=== PATIENT | female | born 1975 | race Caucasian/White ===

== ENCOUNTER 2020-08-15 14:57 | Emergency (ER) | payer SELFPAY ==
[~2020-08-15] VITALS: Ht 165.1 cm; Wt 67.2 kg
[2020-08-15 16:08] LABS: BASO # 0.1 x10^3/uL (0.0-0.2); BASO % 1 % (0-3); EOS # 0.2 x10^3/uL (0.0-0.7); EOS % 2 % (0-3); HEMATOCRIT 39.8 % (36.0-47.0); HEMOGLOBIN 14.1 g/dL (12.0-15.5); LYMPH # 3.2 x10^3/uL (1.0-4.8); LYMPH % 30 % (24-48); MEAN CORPUSCULAR HEMOGLOBIN 33 pg (25-35); MEAN CORPUSCULAR HGB CONC 36 g/dL (31-37); MEAN CORPUSCULAR VOLUME 94 fL (79-100); MONO # 0.6 x10^3/uL (0.0-1.1); MONO % 6 % (0-9); NEUT # 6.8 x10^3uL (1.8-7.7); NEUT % 62 % (31-73); PLATELET COUNT 284 x10^3/uL (140-400); RED BLOOD COUNT 4.24 x10^6/uL (3.50-5.40); RED CELL DISTRIBUTION WIDTH 12.8 % (11.5-14.5); WHITE BLOOD COUNT 10.9 x10^3/uL (4.0-11.0)
[2020-08-15] MEDS ORDERED: IV NORMAL SALINE 1,000ML 1,000 ML IV ONE (16:15)
[2020-08-15] MEDS ORDERED: METOCLOPRAMIDE HCL 10 MG/2 ML VIAL. IVP ONE (16:15)
[2020-08-15] MEDS ORDERED: diphenhydrAMINE 50 MG/ML VIAL IVP ONE (16:15)
[2020-08-15] MEDS ORDERED: KETOROLAC 30 MG/ML VIAL. IVP ONE (16:15)
[2020-08-15 16:18] LABS: BILIRUBIN,URINE NEG (NEG); CLARITY,URINE CLEAR; COLOR,URINE YELLOW; GLUCOSE,URINE >=1000 mg/dL (NEG); NITRITE,URINE NEG (NEG); UROBILINOGEN,URINE 0.2 mg/dL (0.2 mg/dL)
[2020-08-15 16:22] LABS: BACTERIA,URINE 0 /HPF (0-FEW); SQUAMOUS EPITHELIAL CELL,UR FEW /LPF; WBC,URINE 0 /HPF (0-4)
[2020-08-15 16:24] LABS: ANION GAP 9 (6-14); BLOOD UREA NITROGEN 16 mg/dL (7-20); BUN/CREATININE RATIO 20 (6-20); CALCIUM 9.7 mg/dL (8.5-10.1); CARBON DIOXIDE 27 mmol/L (21-32); CHLORIDE 100 mmol/L (98-107); CREATININE 0.8 mg/dL (0.6-1.0); GFR 76.9; GLUCOSE 279 mg/dL (70-99); POTASSIUM 3.8 mmol/L (3.5-5.1); SODIUM 136 mmol/L (136-145)
[2020-08-15 16:36] LABS: ALBUMIN 3.7 g/dL (3.4-5.0); ALBUMIN/GLOBULIN RATIO 0.9 (1.0-1.7); ALK PHOS 51 U/L (46-116); ALT (SGPT) 28 U/L (14-59); AST (SGOT) 13 U/L (15-37); DIRECT BILIRUBIN 0.1 mg/dL (0.0-0.2); TOTAL BILIRUBIN 0.5 mg/dL (0.2-1.0); TOTAL PROTEIN 7.6 g/dL (6.4-8.2)
[2020-08-15 16:54] LABS: BARBITURATES NEG (NEG); BENZODIAZEPINES NEG (NEG); CANNABINOIDS NEG (NEG); COCAINE NEG (NEG); METHADONE NEG (NEG); OPIATES NEG (NEG); PHENCYCLIDINE NEG (NEG)
[2020-08-15 17:03] LABS: AMPHETAMINE/METHAMPHETAMINE NEG (NEG)
--- NOTE | 2020-08-15 18:19 | PHYS DOC ---
Past History Past Medical History: Diabetes, Other Additional Past Medical Histor: NEUROPATHY (OMI STEINBERG APRN) Past Surgical History: Cholecystectomy, Tubal ligation, Other Additional Past Surgical Histo: HERNIA (OMI STEINBERG APRN) Smoking: Cigarettes Additional Smoking Information: 1.5 PACKS/DAY SMOKER-STOPPED1 WEEK AGO Alcohol Use: Rarely Drug Use: None (OMI STEINBERG APRN) Adult General Chief Complaint Chief Complaint: BLOOD SUGAR PROBLEM HPI HPI Patient is a 45-year-old female who presents to the emergency department the chief complaint of feeling fatigued and having high blood sugar episodes since this past Saturday morning. Patient also reports a headache that is consistent with all her other headaches that she has had all day since waking up today. Patient reports taking 800 mg of ibuprofen for her headache 1-1/2 hours ago prior to arrival to the ER today, patient currently rates her pain a 8/10 on a 1-10 pain scale. Patient states she was at her primary care provider Vikki ghosh APRN today who sent her here with concerns of DKA exacerbation. Patient does complain of increased thirst and increased urination lately. Patient denies chest pain, shortness of breath, dizziness, visual changes, neck pain or back pain, recent fever or chills, denies body aches, or rashes of her skin. Patient denies suicidal or homicidal ideation. Patient reports a past medical history of acne problems eye problems GERD, chronic anemias, rheumatoid arthritis, anxiety, depression, OCD, has had past histories of suicidal ideations, chronic migraine headaches, chronic urinary tract infections, chronic musculoskeletal chest pains, type 2 diabetes. Patient denies smoking cigarettes, denies alcohol, states she does drink a cup of coffee occasionally, denies illicit drug use. Patient reports a past surgical history of a hernia repair in 2005, tubal ligation in 1996. (OMI STEINBERG APRN) Review of Systems Review of Systems 14 body systems of review of systems have been reviewed. See HPI for pertinent positives and negative responses, otherwise all other systems are negative, nonpertinent or noncontributory. (OMI STEINBERG APRN) Family History Family History Patient reports family history of asthma, anxiety and depression, type 2 diabetes, drug and alcohol addiction, heart disease, high blood pressure, osteoporosis, prostate cancer, strokes, thyroid disease. (OMI STEINBERG APRN) Current Medications Current Medications Current Medications Medications (Trade) Dose Ordered Sig/Roxana Start Time Stop Time Status Last Admin Dose Admin Diphenhydramine HCl (Benadryl) 25 mg 1X ONCE 08/15/20 16:15 08/15/20 16:16 DC 08/15/20 16:21 25 MG Ketorolac Tromethamine (Toradol 30mg Vial) 30 mg 1X ONCE 08/15/20 16:15 08/15/20 16:16 DC 08/15/20 16:22 30 MG Metoclopramide HCl (Reglan Vial) 10 mg 1X ONCE 08/15/20 16:15 08/15/20 16:16 DC 08/15/20 16:18 10 MG Sodium Chloride 1,000 ml @ 1,000 mls/hr 1X ONCE 08/15/20 16:15 08/15/20 17:14 DC 08/15/20 16:17 1,000 MLS/HR (OMI STEINBERG APRN) Allergies Allergies Allergies Coded Allergies Type Severity Reaction Last Updated Verified dicyclomine Allergy Unknown 08/15/20 Yes duloxetine Allergy Unknown 08/15/20 Yes guaifenesin Allergy Unknown 08/15/20 Yes sulfamethoxazole Allergy Unknown 08/15/20 Yes sumatriptan Allergy Unknown 08/15/20 Yes trimethoprim Allergy Unknown 08/15/20 Yes (OMI STEINBERG APRN) Physical Exam Physical Exam Constitutional: Well developed, well nourished, no acute distress, non-toxic appearance. 45-year-old female in no apparent distress. HENT: Normocephalic, atraumatic, bilateral external ears normal, oropharynx moist, no oral exudates, nose normal. Oropharynx moist, pink, no deep tissue infectious process appreciated, bilateral TMs within normal limits, intact, bilateral external auditory canals within normal limits, no erythema or redness or edema appreciated. No drainage from auditory canals. Eyes: PERRLA, EOMI, conjunctiva normal, no discharge. Neck: Normal range of motion, no tenderness, supple, no stridor. Cardiovascular:Heart rate regular rhythm, no murmur, heart sounds S1-S2 auscultation. Lungs & Thorax: Bilateral breath sounds clear to auscultation no adventitious breath sounds appreciated, the patient is not tachypneic. Abdomen: Bowel sounds normal, soft, no tenderness, no masses, no pulsatile masses. Skin: Warm, dry, no erythema, no rash. Back: No tenderness, no CVA tenderness. Extremities: No tenderness, no cyanosis, no clubbing, ROM intact, no edema. Neurologic: Alert and oriented X 3, normal motor function, normal sensory function, no focal deficits noted. Psychologic: Flat affect, judgement normal, mood normal. (OMI STEINBERG APRN) Current Patient Data Vital Signs Vital Signs Date Time Temp Pulse Resp B/P (MAP) Pulse Ox O2 Delivery O2 Flow Rate FiO2 08/15/20 17:14 69 20 108/74 (85) 97 Room Air 08/15/20 15:20 98.7 Lab Results Laboratory Tests Test 08/15/20 15:40 08/15/20 15:45 Urine Collection Type Unknown Urine Color Yellow Urine Clarity Clear Urine pH 5.5 Urine Specific [place] 1.020 Urine Protein Neg (NEG-TRACE) Urine Glucose (UA) >=1000 mg/dL (NEG) Urine Ketones (Stick) Neg mg/dL (NEG) Urine Blood Mod (NEG) Urine Nitrite Neg (NEG) Urine Bilirubin Neg (NEG) Urine Urobilinogen Dipstick 0.2 mg/dL (0.2 mg/dL) Urine Leukocyte Esterase Neg (NEG) Urine RBC 3-5 /HPF (0-2) Urine WBC 0 /HPF (0-4) Urine Squamous Epithelial Cells Few /LPF Urine Bacteria 0 /HPF (0-FEW) Urine Opiates Screen Neg (NEG) Urine Methadone Screen Neg (NEG) Urine Barbiturates Neg (NEG) Urine Phencyclidine Screen Neg (NEG) Urine Amphetamine/Methamphetamine Neg (NEG) Urine Benzodiazepines Screen Neg (NEG) Urine Cocaine Screen Neg (NEG) Urine Cannabinoids Screen Neg (NEG) Urine Ethyl Alcohol Neg (NEG) White Blood Count 10.9 x10^3/uL (4.0-11.0) Red Blood Count 4.24 x10^6/uL (3.50-5.40) Hemoglobin 14.1 g/dL (12.0-15.5) Hematocrit 39.8 % (36.0-47.0) Mean Corpuscular Volume 94 fL (79-100) Mean Corpuscular Hemoglobin 33 pg (25-35) Mean Corpuscular Hemoglobin Concent 36 g/dL (31-37) Red Cell Distribution Width 12.8 % (11.5-14.5) Platelet Count 284 x10^3/uL (140-400) Neutrophils (%) (Auto) 62 % (31-73) Lymphocytes (%) (Auto) 30 % (24-48) Monocytes (%) (Auto) 6 % (0-9) Eosinophils (%) (Auto) 2 % (0-3) Basophils (%) (Auto) 1 % (0-3) Neutrophils # (Auto) 6.8 x10^3uL (1.8-7.7) Lymphocytes # (Auto) 3.2 x10^3/uL (1.0-4.8) Monocytes # (Auto) 0.6 x10^3/uL (0.0-1.1) Eosinophils # (Auto) 0.2 x10^3/uL (0.0-0.7) Basophils # (Auto) 0.1 x10^3/uL (0.0-0.2) Sodium Level 136 mmol/L (136-145) Potassium Level 3.8 mmol/L (3.5-5.1) Chloride Level 100 mmol/L (98-107) Carbon Dioxide Level 27 mmol/L (21-32) Anion Gap 9 (6-14) Blood Urea Nitrogen 16 mg/dL (7-20) Creatinine 0.8 mg/dL (0.6-1.0) Estimated GFR (Cockcroft-Gault) 76.9 BUN/Creatinine Ratio 20 (6-20) Glucose Level 279 mg/dL (70-99) H Lactic Acid Level 1.1 mmol/L (0.4-2.0) Calcium Level 9.7 mg/dL (8.5-10.1) Total Bilirubin 0.5 mg/dL (0.2-1.0) Direct Bilirubin 0.1 mg/dL (0.0-0.2) Aspartate Amino Transferase (AST) 13 U/L (15-37) L Alanine Aminotransferase (ALT) 28 U/L (14-59) Alkaline Phosphatase 51 U/L (46-116) Ammonia < 10 mcmol/L (11-34) L Creatine Kinase 51 U/L (26-192) Creatine Kinase MB (Mass) < 0.5 ng/mL (0.0-3.6) Creatine Kinase MB Relative Index 1.0 % (0-4) Total Protein 7.6 g/dL (6.4-8.2) Albumin 3.7 g/dL (3.4-5.0) Albumin/Globulin Ratio 0.9 (1.0-1.7) L (OMI STEINBERG APRN) EKG EKG [] (OMI STEINBERG APRN) Radiology/Procedures Radiology/Procedures [] (OMI STEINBERG APRN) Heart Score C/O Chest Pain: No Risk Factors: Risk Factors: DM, Current or recent (<one month) smoker, HTN, HLP, family history of CAD, obesity. Risk Scores: Risk Factors: DM, Current or recent (<one month) smoker, HTN, HLP, family history of CAD, obesity. (OMI STEINBERG APRN) Course & Med Decision Making Course & Med Decision Making Pertinent Labs and Imaging studies reviewed. (See chart for details) 45-year-old female, vital signs reviewed, presents emergency department sent by her primary care provider Vikki Garcia APRN concerning possible DKA symptoms related to patient's past 4 days of fatigue, increased thirst and increased urination, and headaches. Physical examination was nonconcerning, will order DKA work-up in ED. We will treat patient's headache with headache cocktail. Patient amenable to this plan. Patient's labs unremarkable, the patient is not in DKA, the patient's sugar was elevated at 276, the patient states her headache has resolved from the headache cocktail given IV in the ED today. Discussed with patient need to follow-up with primary care for ongoing elevated blood sugars, patient states she checks her blood sugar at least 7 times a day and uses a sliding scale to control her blood sugars. Patient reports she still feels fatigued. Discussed with patient to follow-up with primary care for ongoing investigation of her fatigue symp toms. Patient gave verbal understanding of discharge home instructions, follow-up with PCP this week for ongoing investigation of symptoms, return to ER precautions or concerns, patient was discharged home without incident. (OMI STEINBERG APRN) Dragon Disclaimer Dragon Disclaimer This electronic medical record was generated, in whole or in part, using a voice recognition dictation system. (OMI STEINBERG APRN) Attending Co-Sign The patient was seen and interviewed as well as examined at the bedside. The chart was reviewed. The case was discussed. Agree with the plan of care. (ADY WALKER DO) Departure Departure: Impression: Primary Impression: Headache Additional Impressions: Fatigue High blood sugar Disposition: 20 Condition: GOOD Referrals: RICHARD GARCIA (PCP) Patient Instructions: Fatigue, General Headache Without Cause, Hyperglycemia Additional Instructions: You are seen today in the emergency department for high blood sugar, fatigue, and headache. You were sent here by your primary care physician concerning possible diabetic ketoacidosis. Your serum blood lab work and your urine assay did not show any concerning findings of DKA or infectious process that would require you to be admitted to the hospital. You indicated your headache seemed to be resolving well with the headache medications you are given in the ED today. Please follow-up with Dr. Garcia for ongoing symptoms. Return to the emergency department for worsening symptoms or other concerns. EMERGENCY DEPARTMENT GENERAL DISCHARGE INSTRUCTIONS Thank you for coming to [facility] (ED) today and trusting us with you care. We trust that you had a positivie experience in our Emergency Department. If you wish to speak to the department management, you may call the director at [phone]. YOUR FOLLOW UP INSTRUCTIONS ARE FOLLOWS: 1. Do you have a private Doctor? If you do not have a private doctor, please ask for a resource list of physicians or clinics that may be able to assist you with follow up care. 2. The Emergency Physician has interpreted your x-rays. The X-Ray specialist will also review them. If there is a change in the findings, you will be notified in 48 hours when at all possible. 3. A lab test or culture has been done, your results will be reviewed and you will be notified if you need a change in treatment. ADDITIONAL INSTRUCTIONS AND INFORMATION: 1. Your care today has been supervised by a physician who is specially trained in emergency care. Many problems require more than one evaluation for a complete diagnosis and treatment. We recommend that you schedule your follow up appointment as recommended to ensure complete treatment of you illness or injury. If you are unable to obtain follow up care and continue to have a problem, or if your condition worsens, we recommend that you return to the ED. 2. We are not able to safely determine your condition over the phone nor are we able to give sound medical advice over the phone. For these safety reasons, if you call for medical advice we will ask you to come to the ED for further evaluation. 3. If you have any questions regarding these discharge instructions please call the ED at [phone]. SAFETY INFORMATION: In the interest of safety, wellness, and injury prevention; we encourage you to wear your sealbelt, if you smoke; quite smoking, and we encourage family to use a protective helmet for bicycling and other sporting events that present an increased risk for head injury. IF YOUR SYMPTOMS WORSEN OR NEW SYMPTOMS DEVELOP, OR YOU HAVE CONCERNS ABOUT YOUR CONDITION; OR IF YOUR CONDITION WORSENS WHILE YOU ARE WAITING FOR YOUR FOLLOW UP APPOINTMENT; EITHER CONTACT YOUR PRIMARY CARE DOCTOR, THE PHYSICIAN WHOSE NAME AND NUMBER YOU WERE GIVEN, OR RETURN TO THE ED IMMEDIATELY. Problem Qualifiers Primary Impression: Headache Headache type: unspecified Headache chronicity pattern: episodic headache Intractability: not intractable Qualified Codes: R51.9 - Headache, unspecified Additional Impressions: Fatigue Fatigue type: unspecified Qualified Codes: R53.83 - Other fatigue OMI STEINBERG APRN Aug 15, 2020 18:19 ADY WALKER DO Aug 18, 2020 04:00
[2020-08-15 18:25] VITALS: BP 98/58
== END 2020-08-15 18:25 | disposition home or self-care (01) ==
LOC: ER 14:57
DX: R51.9 Headache, unspecified (principal); R53.83 Other fatigue; E11.65 Type 2 diabetes mellitus with hyperglycemia; F17.210 Nicotine dependence, cigarettes, uncomplicated; Z90.49 Acquired absence of other specified parts of digestive tract; Z98.51 Tubal ligation status; Z88.2 Allergy status to sulfonamides; Z88.1 Allergy status to other antibiotic agents
CPT/HCPCS: 36415; 80053; 80076; 80307; 81001; 82140; 82553; 83605; 85025; 96361; 96374; 96375; 99284; J1200; J1885; J2765; J7030

== ENCOUNTER 2020-10-23 19:12 | Emergency (ER) | payer SELFPAY ==
[~2020-10-23] VITALS: Ht 165.1 cm; Wt 65.6 kg
[2020-10-23 19:48] VITALS: BP 149/75
[2020-10-23 20:35] LABS: BASO % 0 % (0-3); EOS % 1 % (0-3); HEMATOCRIT 35.4 % (36.0-47.0); HEMOGLOBIN 12.6 g/dL (12.0-15.5); LYMPH # 1.2 x10^3/uL (1.0-4.8); LYMPH % 30 % (24-48); MEAN CORPUSCULAR HEMOGLOBIN 32 pg (25-35); MEAN CORPUSCULAR HGB CONC 36 g/dL (31-37); MEAN CORPUSCULAR VOLUME 90 fL (79-100); MONO # 0.3 x10^3/uL (0.0-1.1); MONO % 9 % (0-9); NEUT # 2.4 x10^3uL (1.8-7.7); NEUT % 60 % (31-73); PLATELET COUNT 183 x10^3/uL (140-400); RED BLOOD COUNT 3.92 x10^6/uL (3.50-5.40); RED CELL DISTRIBUTION WIDTH 13.2 % (11.5-14.5)
[2020-10-23 20:39] LABS: CALCIUM 7.9 mg/dL (8.5-10.1); CREATININE 0.9 mg/dL (0.6-1.0); GFR 67.1; POTASSIUM 3.5 mmol/L (3.5-5.1)
[2020-10-23 20:51] LABS: ALBUMIN 3.2 g/dL (3.4-5.0); ALBUMIN/GLOBULIN RATIO 0.9 (1.0-1.7); MAGNESIUM 1.7 mg/dL (1.8-2.4); PHOSPHORUS 3.3 mg/dL (2.6-4.7); TOTAL BILIRUBIN 0.4 mg/dL (0.2-1.0); TOTAL PROTEIN 6.8 g/dL (6.4-8.2)
--- NOTE | 2020-10-23 21:03 | RAD ---
INDICATION: Reason: Shortness of breath, COVID EXPOSURE / Spl. Instructions: / History: COMPARISON: June 23, 2011 FINDINGS: Single view of chest obtained. Limited assessment left lung base secondary to overlying cardiac silhouette. Hypoexpanded exam without definite focal airspace consolidation. Cardiac silhouette is similar to prior. IMPRESSION: * Hypoexpanded examination without definite focal consolidation. Electronically signed by: Alverto Walls MD (10/23/2020 9:00 PM) [id number]
--- NOTE | 2020-10-23 21:28 | PHYS DOC ---
Past History Past Medical History: Diabetes, Other Additional Past Medical Histor: NEUROPATHY, endometriosis (OMI STEINBERG APRN) Past Surgical History: Cholecystectomy, Tubal ligation, Other Additional Past Surgical Histo: HERNIA (OMI STEINBERG APRN) Smoking: Cigarettes Alcohol Use: None Drug Use: None (OMI STEINBERG APRN) Adult General Chief Complaint Chief Complaint: CHEST PAIN HPI HPI Patient is a 45-year-old female presents to the emergency department chief c omplaint of pain with breathing, states her father this morning of the COVID-19 virus, patient fears that she has a COVID-19 virus as she had 2 close family members within the past week. Patient states she was planning on coming to the emergency department this morning when she got the phone call that her dad had . Patient states that she has had body aches with shortness of breath and pain with deep breathing for over the past month now. Patient denies diaphoretic episodes, recent fever chills, nasal congestion, rashes to her skin, dizziness, passing out spells, visual disturbances. Patient denies abdominal pain, vomiting, diarrhea, states she does have nausea. Patient denies any other physical complaints or physical concerns. (OMI STEINBERG APRN) Review of Systems Review of Systems 14 body systems of review of systems have been reviewed. See HPI for pertinent positives and negative responses, otherwise all other systems are negative, nonpertinent or noncontributory. Constitutional: Negative except as outlined in HPI above. Skin: Negative except as outlined in HPI above. Eyes: Negative except as outlined in HPI above. HENT: Negative except as outlined in HPI above. Respiratory: Negative except as outlined in HPI above. Cardiovascular: Negative except as outlined in HPI above. GI: Negative except as outlined in HPI above. : Negative except as outlined in HPI above. Musculoskeletal: Negative except as outlined in HPI above. Integument: Negative except as outlined in HPI above. Neurologic: Negative except as outlined in HPI above. Endocrine: Negative except as outlined in HPI above. Lymphatic: Negative except as outlined in HPI above. Psychiatric: Negative except as outlined in HPI above. (OMI STEINBERG APRN) Current Medications Current Medications Current Medications Medications (Trade) Dose Ordered Sig/Roxana Start Time Stop Time Status Last Admin Dose Admin Insulin Human Regular (HumuLIN R VIAL) 10 unit 1X ONCE 10/23/20 21:30 10/23/20 21:31 Ondansetron HCl (Zofran) 4 mg 1X ONCE 10/23/20 21:30 10/23/20 21:31 Sodium Chloride 1,000 ml @ 1,000 mls/hr 1X ONCE 10/23/20 21:30 10/23/20 22:29 (OMI STEINBERG APRN) Allergies Allergies Allergies Coded Allergies Type Severity Reaction Last Updated Verified dicyclomine Allergy Unknown 10/23/20 Yes duloxetine Allergy Unknown 10/23/20 Yes fentanyl Allergy Unknown 10/23/20 Yes guaifenesin Allergy Unknown 10/23/20 Yes sulfamethoxazole Allergy Unknown 10/23/20 Yes sumatriptan Allergy Unknown 10/23/20 Yes trimethoprim Allergy Unknown 10/23/20 Yes (OMI STEINBERG APRN) Physical Exam Physical Exam Constitutional: Well developed, well nourished, no acute distress, non-toxic appearance. 45-year-old female in no apparent distress. HENT: Normocephalic, atraumatic. Eyes: Conjunctiva normal, no discharge. Neck: Normal range of motion, no stridor. Cardiovascular: No cyanosis appreciated, distal cap refill less than 2 seconds. Heart sounds S1-S2 auscultation. Lungs & Thorax: Patient is in no respiratory distress, no audible adventitious lung sounds appreciated. Lung sounds clear to auscultation all lung hess. Abdomen: Nontender, no abnormalities noted. Skin: Warm, dry, no erythema, no rash. Back: No tenderness, no deformities. Extremities: No tenderness, no cyanosis, no clubbing, ROM intact, no edema. Neurologic: Alert and oriented X 3, normal motor function, normal sensory function, no focal deficits noted. Psychologic: Affect normal, judgement normal, mood normal. (OMI STEINEBRG APRN) Current Patient Data Vital Signs Vital Signs Date Time Temp Pulse Resp B/P (MAP) Pulse Ox O2 Delivery O2 Flow Rate FiO2 10/23/20 19:48 100.1 93 18 149/75 99 Room Air Lab Results Laboratory Tests Test 10/23/20 20:10 White Blood Count 4.0 x10^3/uL Red Blood Count 3.92 x10^6/uL Hemoglobin 12.6 g/dL Hematocrit 35.4 % Mean Corpuscular Volume 90 fL Mean Corpuscular Hemoglobin 32 pg Mean Corpuscular Hemoglobin Concent 36 g/dL Red Cell Distribution Width 13.2 % Platelet Count 183 x10^3/uL Neutrophils (%) (Auto) 60 % Lymphocytes (%) (Auto) 30 % Monocytes (%) (Auto) 9 % Eosinophils (%) (Auto) 1 % Basophils (%) (Auto) 0 % Neutrophils # (Auto) 2.4 x10^3uL Lymphocytes # (Auto) 1.2 x10^3/uL Monocytes # (Auto) 0.3 x10^3/uL Eosinophils # (Auto) 0.0 x10^3/uL Basophils # (Auto) 0.0 x10^3/uL Sodium Level 136 mmol/L Potassium Level 3.5 mmol/L Chloride Level 101 mmol/L Carbon Dioxide Level 27 mmol/L Anion Gap 8 Blood Urea Nitrogen 10 mg/dL Creatinine 0.9 mg/dL Estimated GFR (Cockcroft-Gault) 67.1 BUN/Creatinine Ratio 11 Glucose Level 279 mg/dL Calcium Level 7.9 mg/dL Phosphorus Level 3.3 mg/dL Magnesium Level 1.7 mg/dL Total Bilirubin 0.4 mg/dL Aspartate Amino Transf (AST/SGOT) 40 U/L Alanine Aminotransferase (ALT/SGPT) 61 U/L Alkaline Phosphatase 73 U/L Troponin I Quantitative < 0.017 ng/mL GA-[id number]-Type Natriuretic Peptide 14 pg/mL Total Protein 6.8 g/dL Albumin 3.2 g/dL Albumin/Globulin Ratio 0.9 Lipase 133 U/L Acetone Level Neg Current Medications Medications (Trade) Dose Ordered Sig/Roxana Route PRN Reason Start Time Stop Time Status Last Admin Dose Admin Ondansetron HCl (Zofran) 4 mg 1X ONCE IVP 10/23/20 21:30 10/23/20 21:31 DC 10/23/20 21:26 Insulin Human Regular (HumuLIN R VIAL) 10 unit 1X ONCE IV 10/23/20 21:30 10/23/20 21:31 DC 10/23/20 21:30 Sodium Chloride 1,000 ml @ 1,000 mls/hr 1X ONCE IV 10/23/20 21:30 10/23/20 22:29 10/23/20 21:26 Ketorolac Tromethamine (Toradol 30mg Vial) 30 mg 1X ONCE IVP 10/23/20 22:00 10/23/20 22:01 DC 10/23/20 21:45 Laboratory Tests Test 10/23/20 20:10 White Blood Count 4.0 x10^3/uL (4.0-11.0) Red Blood Count 3.92 x10^6/uL (3.50-5.40) Hemoglobin 12.6 g/dL (12.0-15.5) Hematocrit 35.4 % (36.0-47.0) L Mean Corpuscular Volume 90 fL (79-100) Mean Corpuscular Hemoglobin 32 pg (25-35) Mean Corpuscular Hemoglobin Concent 36 g/dL (31-37) Red Cell Distribution Width 13.2 % (11.5-14.5) Platelet Count 183 x10^3/uL (140-400) Neutrophils (%) (Auto) 60 % (31-73) Lymphocytes (%) (Auto) 30 % (24-48) Monocytes (%) (Auto) 9 % (0-9) Eosinophils (%) (Auto) 1 % (0-3) Basophils (%) (Auto) 0 % (0-3) Neutrophils # (Auto) 2.4 x10^3uL (1.8-7.7) Lymphocytes # (Auto) 1.2 x10^3/uL (1.0-4.8) Monocytes # (Auto) 0.3 x10^3/uL (0.0-1.1) Eosinophils # (Auto) 0.0 x10^3/uL (0.0-0.7) Basophils # (Auto) 0.0 x10^3/uL (0.0-0.2) Sodium Level 136 mmol/L (136-145) Potassium Level 3.5 mmol/L (3.5-5.1) Chloride Level 101 mmol/L (98-107) Carbon Dioxide Level 27 mmol/L (21-32) Anion Gap 8 (6-14) Blood Urea Nitrogen 10 mg/dL (7-20) Creatinine 0.9 mg/dL (0.6-1.0) Estimated GFR (Cockcroft-Gault) 67.1 BUN/Creatinine Ratio 11 (6-20) Glucose Level 279 mg/dL (70-99) H Calcium Level 7.9 mg/dL (8.5-10.1) L Phosphorus Level 3.3 mg/dL (2.6-4.7) Magnesium Level 1.7 mg/dL (1.8-2.4) L Total Bilirubin 0.4 mg/dL (0.2-1.0) Aspartate Amino Transferase (AST) 40 U/L (15-37) H Alanine Aminotransferase (ALT) 61 U/L (14-59) H Alkaline Phosphatase 73 U/L (46-116) Troponin I Quantitative < 0.017 ng/mL (0-0.055) IU-Ygc-R-Type Natriuretic Peptide 14 pg/mL (0-124) Total Protein 6.8 g/dL (6.4-8.2) Albumin 3.2 g/dL (3.4-5.0) L Albumin/Globulin Ratio 0.9 (1.0-1.7) L Lipase 133 U/L (73-393) Acetone Level Neg (NEG) (OMI STEINBERG APRN) EKG EKG EKG performed at 2000 by house respiratory therapy staff shows a normal sinus rhythm without ectopy, heart rate 93 bpm, NM interval 0.150, QT 0.438, no acute STEMI, no ACS, no acute ischemia appreciated, EKG interpreted by ED attending physician Dr. Peña. (OMI STEINBERG APRN) Radiology/Procedures Radiology/Procedures PATIENT: EILEEN HILL JACCOUNT: [id number] : 1975 LOCATION: ER AGE: 45 SEX: F EXAM STATUS: REG ER ORD. PHYSICIAN: OMI STEINBERG APRN REASON: Shortness of breath, COVID EXPOSURE PROCEDURE: CHEST AP ONLY INDICATION: Reason: Shortness of breath, COVID EXPOSURE / Spl. Instructions: / History: COMPARISON: June 23, 2011 FINDINGS: Single view of chest obtained. Limited assessment left lung base secondary to overlying cardiac silhouette. Hypoexpanded exam without definite focal airspace consolidation. Cardiac silhouette is similar to prior. IMPRESSION: * Hypoexpanded examination without definite focal consolidation. Electronically signed by: Alverto Walls MD (10/23/2020 9:00 PM) [id number] (OMI STEINBERG APRN) Heart Score C/O Chest Pain: No Risk Factors: Risk Factors: DM, Current or recent (<one month) smoker, HTN, HLP, family history of CAD, obesity. Risk Scores: Risk Factors: DM, Current or recent (<one month) smoker, HTN, HLP, family history of CAD, obesity. (OMI STEINBERG APRN) Course & Med Decision Making Course & Med Decision Making Pertinent Labs and Imaging studies reviewed. (See chart for details) 45-year-old female, vital signs reviewed, presents emergency department complaining of pain with deep inspiration/expiration. Patient has been exposed to COVID-19 virus, patient's father this morning COVID-19 virus. Physical examination on remarkable, will order cardiorespiratory work-up, patient did reveal during physical examination that she has had uncontrolled blood sugars at home with blood sugars as high as 400. Will order acetone level to rule out DKA. Patient has normal respiratory rate, no Kussmaul breathing appreciated. Patient's labs consistent with uncontrolled diabetes, patient's blood sugar 247, will order 1 L normal saline, 10 units regular insulin, patient is complaining of nausea and pain at this time will give 4 mg Zofran, 30 mg IV Toradol. Upon reevaluation of the patient, patient states she feels much better and wishes to go home now repeat bedside blood sugar equals 192. Discussed with patient strict follow-up with primary care tomorrow, return ER precautions and concerns, discussed with the patient all findings and diagnostic testing as well as the need to follow-up with their primary care provider for further evaluation and treatment or return to the ED if any new or worsening symptoms. Strict return precautions were also discussed at length, the patient voiced understanding and agreement with the discharge planning. The patient was nontoxic in appearance, in no apparent distress, and hemodynamically stable at the time of disposition. (OMI STEINBERG APRN) Dragon Disclaimer Dragon Disclaimer This electronic medical record was generated, in whole or in part, using a voice recognition dictation system. (OMI STEINBERG APRN) Departure Departure: Impression: Primary Impression: High blood sugar Additional Impression: Person under investigation for COVID-19 Disposition: HOME / SELF CARE / HOMELESS Condition: GOOD [facility] Additional Instructions: You were seen today in emergency department for pain with deep inspiration, you also complained of uncontrolled diabetes blood sugars at home. Your blood sugar was 247 today in the emergency department, you are given 1 L normal saline and 10 units of insulin, your blood sugar came down satisfactorily to 192 upon reevaluation. Your chest x-ray did not show any concerning findings, lab work focused on your heart did not show any concerning findings, you are not having a heart attack, your EKG is reassuring. You reported that your father this morning of the COVID-19 virus, you were tested today for the COVID-19 virus. Please practice safe social distancing and self quarantine teen techniques. I have attached COVID-19 virus information to this packet, please review. Please follow-up with your primary care doctor tomorrow related to your blood sugar control problems at home. Return to the emergency department for worsening symptoms or other concerns. Thank you for visiting our Emergency Department. It was a pleasure taking care of you today in the emergency department and we appreciate you trusting us with your care. If any additional problems come up don't hesitate to return to visit us. Please follow up with your primary care provider so they can plan additional care if needed and know about the problem that you had. If symptoms worsen come back to the Emergency Department. Any concerning symptoms that start such as chest pain, shortness of air, weakness or numbness on one side of the body, running high fevers or any other concerning symptoms return to the ER. EMERGENCY DEPARTMENT GENERAL DISCHARGE INSTRUCTIONS Thank you for coming to [facility] (ED) today and trusting us with you care. We trust that you had a positivie experience in our Emergency Department. If you wish to speak to the department management, you may call the director at [phone]. YOUR FOLLOW UP INSTRUCTIONS ARE FOLLOWS: 1. Do you have a private Doctor? If you do not have a private doctor, please ask for a resource list of physicians or clinics that may be able to assist you with follow up care. 2. The Emergency Physician has interpreted your x-rays. The X-Ray specialist will also review them. If there is a change in the findings, you will be notified in 48 hours when at all possible. 3. A lab test or culture has been done, your results will be reviewed and you will be notified if you need a change in treatment. ADDITIONAL INSTRUCTIONS AND INFORMATION: 1. Your care today has been supervised by a physician who is specially trained in emergency care. Many problems require more than one evaluation for a complete diagnosis and treatment. We recommend that you schedule your follow up appointment as recommended to ensure complete treatment of you illness or injury. If you are unable to obtain follow up care and continue to have a problem, or if your condition worsens, we recommend that you return to the ED. 2. We are not able to safely determine your condition over the phone nor are we able to give sound medical advice over the phone. For these safety reasons, if you call for medical advice we will ask you to come to the ED for further evaluation. 3. If you have any questions regarding these discharge instructions please call the ED at [phone]. SAFETY INFORMATION: In the interest of safety, wellness, and injury prevention; we encourage you to wear your sealbelt, if you smoke; quite smoking, and we encourage family to use a protective helmet for bicycling and other sporting events that present an increased risk for head injury. IF YOUR SYMPTOMS WORSEN OR NEW SYMPTOMS DEVELOP, OR YOU HAVE CONCERNS ABOUT YOUR CONDITION; OR IF YOUR CONDITION WORSENS WHILE YOU ARE WAITING FOR YOUR FOLLOW UP APPOINTMENT; EITHER CONTACT YOUR PRIMARY CARE DOCTOR, THE PHYSICIAN WHOSE NAME AND NUMBER YOU WERE GIVEN, OR RETURN TO THE ED IMMEDIATELY. You have been tested for or diagnosed with COVID-19. It is an infection caused by a new type of coronavirus. COVID-19 will cause cold-like or mild flu symptoms in most. It can cause more severe symptoms like problems breathing in some. There is no treatment for COVID-19. The body will clear the infection over time. Self-care will help to ease discomfort. Steps to Take: Self-Care Rest as needed. Healthy habits may help you feel better. Steps include: Choose healthy foods including fruits and vegetables. Drink water throughout the day. Get plenty of sleep each night. If you smoke, try to quit. It may ease breathing. Avoid alcohol. Keep Others Healthy The virus can spread to others. Droplets are released every time you sneeze or cough. The droplets can get into the mouth, nose, or eyes of people near you and lead to infection. To lower the chances of spreading COVID-19 to others: Stay at home until your doctor has said it is safe to leave. If you tested positive this will mean staying isolated until both of the following are true: At least 7 days have passed since the start of illness. You are free of fever for at least 72 hours without the use of medicine. During this time: - Avoid public areas, events, or transportation. Do not return to work or school until your doctor has said it is safe to do so. - Call ahead if you need to go to a medical center. Let them know you may have COVID-19. It will help them guide you where to go. They may also ask you to wear a facemask when you come to the office. - If you call for emergency medical services, let them know you may have COVID- 19. While at home: - Try to avoid close contact with others. Stay about 6 feet away. - If possible, spend most of your time in a separate room from others. - Use a face mask if you will be in close contact with others such as sharing a room or vehicle. - Have someone wipe down common surfaces in the home. Use household animal killer every day on areas like doorknobs, counters, or sinks. - Cough or sneeze into a tissue. Throw the tissue away right after use. If a tissue is not available, cough or sneeze into your elbow. - Wash your hands often. Wash them after sneezing or coughing. Use soap and water and wash for at least 20 seconds. Alcohol based hand film cleaner can be used if soap and water is not available. - Do not prepare food for others. Avoid sharing personal items like forks, spoons, or toothbrushes. - Avoid close contact with pets while you are sick. There is no evidence of the virus passing to pets. This is a safety step until more is known about this virus. Isolation can be frustrating. Social interaction can help. Keep in touch with friends and family through phone and tech options. You can still interact with others in your home, just keep a safe distance of about 6 feet. Follow-up: Your doctors office will check in with you to see if there are any changes in your health. You may be asked to keep track of symptoms to share with them. They will also let you know when you are clear to be in public again. Problems to Look Out For: Contact your doctor if your recovery is not going as you expect. Get emergency care if you have problems such as: - Trouble breathing - Nonstop chest pain or pressure - Changes in awareness, confusion, or problems waking - Lips or face have bluish color - Worsening of symptoms If you think you have an emergency, call for emergency medical services right away. As taken from [facility] Attending Signature Attending Signature I have participated in the care of this patient and I have reviewed and agree with all pertinent clinical information above including history, exam, and recommendations. (MATIAS PEÑA MD) Problem Qualifiers OMI STEINBERG APRN Oct 23, 2020 21:28 MATIAS PEÑA MD Oct 25, 2020 14:13
[2020-10-23] MEDS ORDERED: INSULIN REGULAR 100 UNIT/ML 3ML VIAL. IV ONE (21:30)
[2020-10-23] MEDS ORDERED: IV NORMAL SALINE 1,000ML 1,000 ML IV ONE (21:30)
[2020-10-23] MEDS ORDERED: ONDANSETRON PF 4 MG/2 ML VIAL. IVP ONE (21:30)
[2020-10-23] MEDS ORDERED: KETOROLAC 30 MG/ML VIAL. IVP ONE (22:00)
--- NOTE | 2020-10-23 22:46 | EKG ---
[address] [address] Test Date: 2020-10-23 Test Time: 20:01:57 Pat Name: EILEEN HILL Department: Room: Gender: F Store Administrative Assistant: MIRELA : 1975 Requested By: OMI STEINBERG Order Number: [id number] Reading MD: Measurements Intervals [place] Rate: 93 P: 0 AR: 150 QRS: 1 QRSD: 70 T: 9 QT: 350 QTc: 438 Interpretive Statements SINUS RHYTHM NORMAL ECG RI6.02 No previous ECG available for comparison
== END 2020-10-23 22:34 | disposition home or self-care (01) ==
LOC: ER 19:12
DX: U07.1 COVID-19 (principal); E11.65 Type 2 diabetes mellitus with hyperglycemia; F17.210 Nicotine dependence, cigarettes, uncomplicated; Z90.49 Acquired absence of other specified parts of digestive tract; Z98.51 Tubal ligation status; Z88.6 Allergy status to analgesic agent; Z88.8 Allergy status to other drugs, medicaments and biological substances
CPT/HCPCS: 71045; 80053; 82010; 82947; 83690; 83735; 83880; 84100; 84484; 85025; 93005; 96361; 96374; 96375; 99285; C9803; J1815; J1885; J2405; J7030; U0003